=== PATIENT | male | born 1965 ===

== ENCOUNTER 2023-06-28 06:39 | Day surgery (SDC) | payer OTHER ==
[~2023-06-28] VITALS: Ht 167.6 cm; Wt 71.2 kg
[~2023-06-28 06:39] MED LIST: VITAMIN D3 PO; VOLTA
== END 2023-06-28 18:50 | disposition home or self-care (01) ==
LOC: CIR.AMB 06:39
PROVIDERS: ATTEND Colon & Rectal Surgery
DX: K64.2 Third degree hemorrhoids (principal); K92.2 Gastrointestinal hemorrhage, unspecified; K64.4 Residual hemorrhoidal skin tags; K64.8 Other hemorrhoids; I10 Essential (primary) hypertension; Z20.822 Contact with and (suspected) exposure to COVID-19